=== PATIENT | male | born 1965 | race Caucasian/White ===

== ENCOUNTER 2017-11-06 08:14 | Day surgery (SDC) | payer OTHER ==
[2017-11-06] MEDS ORDERED: PROPOFOL 60 ML (09:09)
[2017-11-06] MEDS ORDERED: LIDOCAINE 2% (SDV) 5 ML INJ (09:09)
== END 2017-11-06 11:19 | disposition home or self-care (01) ==
LOC: GIL 08:14
DX: K92.1 Melena (principal); K21.0 Gastro-esophageal reflux disease with esophagitis; K29.60 Other gastritis without bleeding; K62.1 Rectal polyp; E78.5 Hyperlipidemia, unspecified; E11.9 Type 2 diabetes mellitus without complications; I10 Essential (primary) hypertension; E66.9 Obesity, unspecified; Z68.24 Body mass index [BMI] 24.0-24.9, adult
CPT/HCPCS: 43239; 88305; 88312; 88313